=== PATIENT | female | born 1940 | race African-American/Black ===

== ENCOUNTER → 2018-11-11 | Outpatient (CLI) | payer OTHER ==
[~2018-11-11] MED LIST: AMARYL2 M1 PO; LEVEMIR SUBQ; LIPITOR 20 MG T20 M1 PO; LISINOPRIL-HCT1 EAC1 PO
== END ==
LOC: HYPER 11-04 14:29
DX: I89.0 Lymphedema, not elsewhere classified (principal); E78.5 Hyperlipidemia, unspecified; E11.39 Type 2 diabetes mellitus with other diabetic ophthalmic complication; H40.9 Unspecified glaucoma; H42 Glaucoma in diseases classified elsewhere; K58.8 Other irritable bowel syndrome; M79.605 Pain in left leg; I10 Essential (primary) hypertension; L84 Corns and callosities; M79.604 Pain in right leg; M19.90 Unspecified osteoarthritis, unspecified site; R60.0 Localized edema; Z79.84 Long term (current) use of oral hypoglycemic drugs; Z79.4 Long term (current) use of insulin; Z87.891 Personal history of nicotine dependence

== ENCOUNTER → 2018-11-25 | Outpatient (CLI) | payer OTHER | LOC: HYPER 06:14 | DX: R60.0 Localized edema (principal); E11.39 Type 2 diabetes mellitus with other diabetic ophthalmic complication; H40.9 Unspecified glaucoma; E78.5 Hyperlipidemia, unspecified; I87.2 Venous insufficiency (chronic) (peripheral); I10 Essential (primary) hypertension; K58.8 Other irritable bowel syndrome; M19.90 Unspecified osteoarthritis, unspecified site; Z87.891 Personal history of nicotine dependence; Z79.84 Long term (current) use of oral hypoglycemic drugs; Z79.4 Long term (current) use of insulin ==